=== PATIENT | female | born 1975 | race Caucasian/White ===

== ENCOUNTER 2022-06-25 08:35 | Outpatient (CLI) | payer BC | END 2022-06-25 08:36 | disposition home or self-care (01) | LOC: RAD 08:35 | PROVIDERS: ATTEND Internal Medicine Gastroenterology | DX: K21.9 Gastro-esophageal reflux disease without esophagitis (principal); R63.4 Abnormal weight loss; R11.2 Nausea with vomiting, unspecified | CPT/HCPCS: 74246 ==

== ENCOUNTER 2022-08-02 08:03 | Outpatient (CLI) | payer BC | END 2022-08-02 08:04 | disposition home or self-care (01) | LOC: NM 08:03 | PROVIDERS: ATTEND Internal Medicine Gastroenterology | DX: R11.2 Nausea with vomiting, unspecified (principal); K21.9 Gastro-esophageal reflux disease without esophagitis; R63.4 Abnormal weight loss | CPT/HCPCS: 78264; A9541 ==